=== PATIENT | male | born 1965 | race Hispanic/Latino ===

== ENCOUNTER → 2020-03-28 | Outpatient (CLI) | payer BC ==
[2020-03-28 10:42] LABS: INR 0.99 (0.85-1.15); PARTIAL THROMBOPLASTIN TIME 24.7 SEC (26.3-35.5); PROTHROMBIN TIME 10.7 SEC (9.6-11.6)
== END | disposition home or self-care (01) ==
LOC: EDSTATUS 03-23 08:00 → DAH 09:16
PROVIDERS: ATTEND Internal Medicine
DX: E04.1 Nontoxic single thyroid nodule (principal); E11.42 Type 2 diabetes mellitus with diabetic polyneuropathy; E11.65 Type 2 diabetes mellitus with hyperglycemia; I10 Essential (primary) hypertension; E78.5 Hyperlipidemia, unspecified; G47.33 Obstructive sleep apnea (adult) (pediatric); E66.9 Obesity, unspecified; Z79.4 Long term (current) use of insulin; Z79.899 Other long term (current) drug therapy
CPT/HCPCS: 10005; 36415; 60100; 76942; 85610; 85730

== ENCOUNTER → 2022-06-25 | Outpatient (CLI) | payer OTHER ==
[~2022-06-25] MED LIST: AEC81 PO; EMPA25TA PO; HYDR25TA PO; INSU3INS5 SQ; LISI30TA4 PO; METF-446 PO; VIT1CAPS47 PO
== END | disposition home or self-care (01) ==
LOC: LAB 08:38
PROVIDERS: ATTEND Internal Medicine Cardiovascular Disease
DX: E11.59 Type 2 diabetes mellitus with other circulatory complications (principal); E78.00 Pure hypercholesterolemia, unspecified; Z78.9 Other specified health status
CPT/HCPCS: 82306

== ENCOUNTER → 2022-09-23 | Outpatient (CLI) | payer OTHER | END | disposition home or self-care (01) | LOC: RAH 14:37 | PROVIDERS: ATTEND Internal Medicine | DX: E04.1 Nontoxic single thyroid nodule (principal) | CPT/HCPCS: 76536 ==

== ENCOUNTER → 2022-10-02 | Outpatient (CLI) | payer OTHER ==
[~2022-10-02] MED LIST changes: +LIDOCAINE HCL 1% 20 ML VIAL ONE
[2022-10-02 10:04] LABS: INR 1.01 (0.85-1.15)
[2022-10-02 10:05] LABS: PARTIAL THROMBOPLASTIN TIME 26.8 SEC (26.3-35.5)
== END | disposition home or self-care (01) ==
LOC: RAH 08:33
PROVIDERS: ATTEND Internal Medicine
DX: E04.1 Nontoxic single thyroid nodule (principal); Z79.01 Long term (current) use of anticoagulants
CPT/HCPCS: 10005; 36415; 76942; 85610; 85730; 88173; 88305

== ENCOUNTER → 2024-03-22 | Outpatient (CLI) | payer OTHER ==
[~2024-03-22] MED LIST changes: -LIDOCAINE HCL 1% 20 ML VIAL ONE
[2024-03-22 12:32] LABS: CREATININE 1.3 mg/dL (0.5-1.3); POTASSIUM 4.9 mmol/L (3.5-5.1)
== END | disposition home or self-care (01) ==
LOC: LAB 08:26
PROVIDERS: ATTEND Internal Medicine Cardiovascular Disease
DX: I10 Essential (primary) hypertension (principal); E78.2 Mixed hyperlipidemia; I95.2 Hypotension due to drugs
CPT/HCPCS: 36415; 80048

== ENCOUNTER 2024-09-03 09:50 | Observation (INO) | payer OTHER ==
[2024-09-01 13:08] VITALS: BP 148/67; PULSE 68; RESP 18; TEMP 98.1
[2024-09-01 13:10] LABS: BASOPHILS # (AUTO) 0.12 K/uL (0.00-0.20); BASOPHILS % (AUTO) 1.2 % (0.0-5.0); EOSINOPHILS # (AUTO) 0.27 K/uL (0.00-0.70); EOSINOPHILS % (AUTO) 2.7 % (0.0-8.0); HEMATOCRIT 50.1 % (42-54); IMMATURE GRANULOCYTE ABSOLUTE 0.04 K/uL (0-1); LYMPHOCYTES % (AUTO) 30.2 % (21.0-51.0); MEAN CORPUSCULAR HEMOGLOBIN 29.1 pg (27.0-33.0); MEAN CORPUSCULAR HGB CONC 35.5 g/dL (32.0-36.0); MONOCYTES % (AUTO) 9.9 % (3.0-13.0); NEUTROPHILS # (AUTO) 5.5 K/uL (1.8-7.7); NEUTROPHILS % (AUTO) 55.6 % (40.0-77.0); PLATELET COUNT (AUTO) 215 K/uL (130-400); RED BLOOD CELL COUNT(AUTO) 6.11 MIL/uL (4.50-6.20); RED CELL DISTRIBUTION WIDTH 14.4 % (11.0-15.5); WHITE BLOOD COUNT (AUTO) 9.9 K/uL (4.8-10.8)
[2024-09-01 13:18] LABS: CREATININE 1.3 mg/dL (0.5-1.3); MAGNESIUM 2.2 mg/dL (1.80-2.40); POTASSIUM 4.5 mmol/L (3.5-5.1)
[2024-09-01 13:21] LABS: INR 1.03 (0.85-1.15); PROTHROMBIN TIME 10.9 SEC (9.6-11.6)
[2024-09-01 13:23] LABS: PARTIAL THROMBOPLASTIN TIME 25.7 SEC (26.3-35.5)
[2024-09-01 13:29] LABS: APPEARANCE,URINE CLEAR (CLEAR); BILIRUBIN,URINE NEGATIVE (NEGATIVE); COLOR,URINE LIGHT-YELLOW (YELLOW); GLUCOSE, URINE (UA) >=1000 mg/dL (NEGATIVE); KETONES,URINE NEGATIVE (NEGATIVE); LEUKOCYTE ESTERASE ,URINE NEGATIVE Leu/uL (NEGATIVE); NITRATE,URINE NEGATIVE (NEGATIVE); OCCULT BLOOD,URINE NEGATIVE (NEGATIVE); PH,URINE 5.5 (5.0-8.0); PROTEIN,URINE NEGATIVE (NEGATIVE); UROBILINOGEN,URINE 0.2 mg/dL (0.2-1.0)
--- NOTE | 2024-09-01 13:34 | HMCIMG ---
Exam Type: CHEST 1VW Clinical Information: PRE OP Comparison: None Findings: The lungs are clear of infiltrates. The heart is normal in size. The bony and soft tissue structures of the chest are unremarkable. Impression: Clear lungs.
--- NOTE | 2024-09-01 13:39 | EKG ---
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
[2024-09-01 13:42] LABS: ADD UA MICROSCOPIC YES
[2024-09-01 13:47] LABS: B-TYPE NATRIURETIC PEPTIDE 7 pg/mL (0-100)
[2024-09-01 14:07] LABS: RBC,URINE 0-1 /HPF (0-1)
[~2024-09-03] VITALS: Ht 177.8 cm; Wt 104.3 kg
[2024-09-03] VITALS (12 sets, daily range): BP systolic 82–135; BP diastolic 41–74; PULSE 57–72; RESP 14–22; TEMP 97.6–98.4; O2SAT 97
[~2024-09-03 09:50] MED LIST changes: +ATOR-2 PO; +CHOL500051 PO; +EZET10TA48 PO; -METF-446 PO; +MVI PO; +TIRZ10PE SQ
[2024-09-03] MEDS ORDERED: LIDOCAINE HCL 400MG/20ML VIAL ONE (15:46)
[2024-09-03] MEDS ORDERED: HEParin-NS 1,000 UNIT/500 ML 1,000 ML IV ONE (15:46)
[2024-09-03] MEDS ORDERED: IODIXANOL 320 MG/ML 100 ML VIAL ONE (15:46)
[2024-09-03] MEDS ORDERED: SODIUM BICARB 50MEQ 50ML VIAL 50 ML ONE (15:46)
[2024-09-03] MEDS ORDERED: HEParin 10,000 UNIT/10ML (1,000 UNIT/ML) VIAL ONE (15:46)
[2024-09-03] MEDS ORDERED: FENTanyl CITRate PF 50 MCG/1 ML 2ML VIAL ONE (16:22)
[2024-09-03] MEDS ORDERED: MIDAZOLAM HCL 1 MG/ML 2ML VIAL ONE (16:22)
[2024-09-03] MEDS ORDERED: cloPIDOgrel 300MG TAB ONE (17:30)
[2024-09-03] MEDS ORDERED: ASPIRIN 325MG EC TAB PO ONE (17:30)
--- NOTE | 2024-09-03 18:04 | PRN ---
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 Under local anesthesia with 1% lidocaine using ultrasound guidance and micropuncture technique the right jugular vein was accessed by a posterior approach and a nine Slovak sheath was inserted. Over a Glidewire we advanced a angled glide catheter to the left superficial femoral vein and performed left iliofemoral venography, then exchanged for an intravascular ultrasound catheter and performed left iliofemoral intravascular ultrasound. I personally performed the ultrasound procedure, selected images for interpretation, performed the measurements and interpreted the results. We then administered 5000 units aqueous heparin and 600 mg clopidogrel and 325 mg aspirin and advanced a 20 x 80 mm Medtronic Abre venous self expanding stent system to the disease segment of the left common iliac and deployed it. We then exchanged for a Medtronic Abre 18 x 120 mm venous self expanding stent system which we deployed in the left external iliac throughout the entire length of the external iliac. We then validated results by intravascular ultrasound. We then repositioned the Glidewire and Archbold catheter in the right superficial femoral and removed the wire and performed right iliofemoral venography. We then readvanced the Glidewire and performed right iliofemoral intravascular ultrasound. Again, I personally performed the procedure, selected the images for interpretation, performed the measurements and interpreted the results. We exchanged for a 14 x 60 mm balloon with which we pre-dilated the entire length of the external iliac, then we exchanged for a Medtronic Abre venous self expand ing stent system 16 x 150 mm in size. We deployed this along the entire length of the right external iliac and diseased segment of the common iliac. Results were validated by intravascular ultrasound and we removed the equipment, sat the patient upright and removed the arterial sheath and obtained hemostasis by direct manual pressure. No complications occurred and the patient was transferred from the lab in stable condition. RESULTS: Left iliofemoral venography demonstrated about 50% stenosis of the left external iliac vein. Right iliofemoral venography demonstrated diffuse 50% narrowing of the external iliac and distal common iliac veins. Intravascular ultrasound results were as follows: Inferior vena cava area 271 mm, diameter 19.5 mm. Left side intravascular ultrasound measurements: Left common iliac reference area 333 mm, diameter 21.2 mm. Left common iliac compression area 108 mm, diameter 13.1 mm, 67.5% stenosis. Left common iliac vein poststenotic area 307 mm, diameter 19.5 mm, 8% residual. Left external iliac reference area 238 mm, diameter 17.5 mm. Left external iliac compression area 76 mm, diameter 10.5 mm, 68% stenosis. (Because the entire external iliac appeared to be compressed, we used the common femoral area as the reference.) Left external iliac vein post stent area 199 mm, diameter 15.5 mm, 16% residual. Left common femoral vein reference area 236 mm, diameter 17.5 mm. Right side intravascular ultrasound measurements: Right common iliac reference area 219 mm, diameter 16.2 mm. Right common iliac vein compression area 69 mm, diameter 10.8 mm, 69% stenosis. Post stent right common iliac vein area 231 mm, diameter 17 mm, 0% residual. Right external iliac vein reference area 146 mm, diameter 14 mm. Right external iliac vein compression area 39 mm, diameter 8.2 mm, 73% stenosis. Right external iliac vein post stent area 162 mm, diameter 14.4 mm, 0% residual. Right common femoral vein reference area 182 mm, diameter 15.2 mm. Conclusions: Bilateral May-Thurner syndrome is confirmed with narrowings of 68-73% in common iliac and external iliac veins bilaterally. Successful treatment of May-Thurner syndrome with successful bilateral iliac vein stenting CRISTIAN DIMAS MD September 03, 2024 18:04
--- NOTE | 2024-09-03 20:35 | NUR ---
WENT INTO PATIENTS ROOM TO START DISCHARGING HIM HOME AND NOTICED PT DIAPHORETIC. PT DID STATE WHEN HE CAME BACK FROM THE RESTROOM HE HAD A SHARP PAIN TO LOW ABD. BS 170 NOTED BLOOD PRESSURE IN THE 80'S SYSTOLIC, SALARY MANAGER CALLED QUICK REPORT WAS GIVEN TO RN AND DR. DIMAS WHOM STATED HE WILL COME AND ASSESS THE PT.
--- NOTE | 2024-09-03 20:45 | NUR ---
DR. DIMAS AT BEDSIDE TO ASSESS THE PATIENT. 200ML BOLUS GIVEN TO PT BLOOD PRESSURE DID IMPROVE. DR. DIMAS TOLD PT AND HE WILL BE STAYING FOR OBS STAT CT ORDERED. REPORT GIVEN TO RN ON 2ND FLOOR CT ABD PELVIS WILL BE DONE PRIOR TO SENDING PT TO 2ND FLOOR.
--- NOTE | 2024-09-03 21:06 | NUR ---
RN FROM [facility] PT GIVING REPORT. STAFF WAS INFORMED THAT PT HAS STAT CT EXAM PENDING
--- NOTE | 2024-09-03 21:20 | NUR ---
RECEIVED PT FROM DAY SURGERY VIA BED, AWAKE AND ORIENTED. PT DENIES DISCOMFORT, NO SOB OR LABORED RESPIRATIONS, RIGHT EXTERNAL JUGULAR ACCESS SITE FOR CATH CLEAN, DRY, AND INTACT. NO HEMATOMA, NO DRAINAGE, NO REDNESS. ORIENTED TO ROOM AND CALL LIGHT. PT MADE AWARE TO CALL STAFF IF NEEDING ASSISTANCE. TELEMETRY MONITORING, CALL LIGHT WITHIN REACH. SPOUSE AT BEDSIDE
--- NOTE | 2024-09-03 21:33 | HMCIMG ---
CT ABDOMEN WITHOUT CONTRAST. CT PELVIS WITHOUT CONTRAST. INDICATION: Lower abdominal pain. Hypotensive. TECHNIQUE: Routine transaxial imaging using 5 mm slice thickness through the abdomen and pelvis without the administration of IV contrast. Thin slice reconstructions are also provided. Coronal and sagittal reformatted images acquired for interpretation. CT was performed with one or more of the following dose reduction techniques: Automated exposure control, adjustment of the mA and/or kV according to patient size, or use of iterative reconstruction technique. COMPARISON: None FINDINGS: ON NONCONTRAST IMAGING: ABDOMEN: Heart size is normal. Visible lung bases are clear. No abnormal right renal calcifications, hydronephrosis, perinephric inflammation, or proximal hydroureter detected. 6 cm simple left renal cyst and much smaller 2.2 cm simple right renal cyst. Additional subcentimeter simple cyst at the mid to lower portion and lower portion of the right kidney. 2 mm calcification at the midportion of the left kidney. The liver is normal in size and smooth in contour without biliary duct dilation. Diffuse low attenuation of the liver parenchyma suggests fatty change. The spleen is normal in size and attenuation. The gallbladder appears normal. The pancreas appears normal without pancreatic duct dilation. The adrenal glands appear normal. No significant abdominal, retrocrural or retroperitoneal adenopathy noted. No evidence for intra-abdominal free air or organized fluid collection. Mild calcific plaque is noted along the abdominal aortic and iliac vessel bonilla without aneurysmal dilation. Bilateral iliac vein stents noted. PELVIS: No abnormal calcifications within the urinary bladder or distal ureters. No evidence for free air or organized pelvic fluid collection. No significant pelvic adenopathy detected. Several diverticula along the distal colon. Moderate distal colonic stool burden. The appendix appears normal. Visible osseous structures are intact. IMPRESSION: 2 mm nonobstructing left renal calculus. Hepatic steatosis. Distal colonic diverticulosis. Additional minor findings, postsurgical changes, and pertinent negatives as reported.
--- NOTE | 2024-09-03 22:05 | HP ---
History of Present Illness Reason for Visit: abdominal pain History of Present Illness Mr. Ji is a 58-year-old male that was seen and examined today on 09/03/2024. Patient is a good historian of personal health. patient's is at bedside. Patient states that he came to the hospital to have an outpatient procedure. Patient is status post bilateral iliac stents due to peripheral artery disease. In the recovery period about 2044 patient developed abdominal pain. Location is to bilateral upper quadrants. Character is described as, like gas. There was no alleviating factors. Symptoms are aggravated with defecation. Patient denies any associated chest pain or shortness and breath. Postprocedure CT of abdomen and pelvis showed2 mm nonobstructing left renal calculus, hepatic steatosis, distal colonic diverticulosis as well as additional minor findings, postsurgical changes. Patient will be continued to be followed by cardiology service, Dr. Soliman who requested hospitalist service for admission Past Medical History Patient History: Carcinomas MOTHER, , Age: 40, Cause: Leukemia Hypertension MOTHER, , Age: 40, Cause: Leukemia FATHER, , Age: 82, Cause: Old age ADDITIONAL PAST MEDICAL HISTORY: [Diabetes mellitius type2, hypertension, hyperlipidemia, PAD, DESTINEY] SOCIAL HISTORY: [Negative for smoking. Patient drinks 1-2 beers about once a month that are12 oz each. Patient denies drug use.] SURGICAL HISTORY: [Hernia repair, colonoscopy, bilateral iliac stents] Review of Systems General: No Fever, No Chills, No Night Sweats, No Fatigue, No Malaise, No Appetite, No Other HEENT: No Head Aches, No Visual Changes, No Eye Pain, No Ear Pain, No Dysphasia, No Sinus Congestion, No Post Nasal Drip, No Sore Throat, No Other Pulmonary: No Dyspnea, No Cough, No Pleuritic Chest Pain, No Other Cardiovascular: No: Chest Pain, Palpitations, Orthopnea, Paroxysmal Noc. Dyspnea, Edema, Lt Headedness, Other Gastrointestinal: Abdominal Pain; No: Nausea, Vomiting, Diarrhea, Constipation, Melena, Hematochezia, Other Genitourinary: No Dysuria, No Frequency, No Incontinence, No Hematuria, No Retention, No Other Musculoskeletal: No: other, neck pain, shoulder pain, arm pain, back pain, hand pain, leg pain, foot pain Skin: No Urticaria, No Rash, No Other Neurological: No: Weakness, Numbness, Incoordination, Change in speech, Confusion, Seizures, Other Allergies: Coded Allergies: No Known Drug Allergies (Unverified Allergy, Unknown, 05/14/22) Scheduled Aspirin (Aspirin 81 Mg Ectab), 81 MG PO DAILY, (Reported) Atorvastatin Calcium (Atorvastatin Calcium), 80 MG PO HS, (Reported) Cholecalciferol (Vitamin D3) (Vitamin D3), 125 MCG PO AM, (Reported) Empagliflozin (Jardiance), 25 MG PO DAILY, (Reported) Ezetimibe (Ezetimibe), 10 MG PO AM, (Reported) Hydrochlorothiazide (Hydrochlorothiazide), 25 MG PO DAILY, (Reported) Insuln Asp Prt/Insulin Aspart (Novolog Mix 70-30 Flexpen Syrn), 80 UNITS SQ BID, (Reported) Lisinopril (Lisinopril), 30 MG PO DAILY, (Reported) Tirzepatide (Mounjaro), 10 MG SQ WEEKLY, (Reported) Vit C/E/Zn/Coppr/Lutein/Zeaxan (Preservision Areds 2 Softgel), 1 EACH PO DAILY, (Reported) [Mvi], 1 TAB PO DAILY, (Reported) Discontinued Medications Metformin HCl (Metformin HCl), 1,000 MG PO BID, (Reported) Exam Vital Signs Vital Signs Date Time Temp Pulse Resp B/P (MAP) Pulse Ox O2 Delivery O2 Flow Rate FiO2 09/03/24 21:39 98.1 67 22 129/72 96 Room Air 09/03/24 20:50 21 General Appearance: Alert, Oriented X3, Cooperative, No acute distress HEENT: Atraumatic, PERRLA, EOMI, Mucous membr. moist/pink Respiratory: Clear to auscultation, Normal air movement, NL respiratory effort Cardiovascular: Regular rate, Regular rhythm, Normal S1, Normal S2 Abdominal: Normal bowel sounds, Soft, No tenderness Extremities: No edema Skin: Other (Positive jugular surgical incision) Neuro: Normal speech, Strength at 5/5 X4 ext, Sensation intact, Cranial nerves 3-12 NL Psych/Mental Status: Mental status NL, Mood NL, Thoughts/Content NL Assessment/Plan ASSESSMENT: [ Peripheral artery disease, POA Status post bilateral iliac stents, on 09/03/2024 Abdominal pain Diabetes mellitius type2 Hypertension Hyperlipidemia CAD DESTINEY] PLAN: [ Admit patient to pccu as inpatient status. Place patient on telemetry monitoring. Patient is being followed by cardiology service, Dr. Soliman Anticoagulation and antiplatelet therapy per Cardiology Service. Postprocedure care per cardiology service. Reviewed CT of abdomen and pelvis. Check hemoglobin A1c in a.m. Glucometer checks a.c. and HS 1800 ADA diet Humulin R sliding scale Continue aspirin, Plavix, multivitamin, lisinopril, insulin, atorvastatin, hydrochlorothiazide, Zetia, empagliflozin. CPAP per home settings as needed GI prophylaxis, famotidine DVT prophylaxis, Jose's and SCDs ADVANCED CARE PLANNING 1. Which of the following were discussed? Hospice Care - Yes Therapeutic options - Yes Advance Directives - Yes -patient wishes to remain a full code at this time Other discussions - patient states he does not have any advance directives in place at this time, however his can make decisions for him if he becomes unable. 2. Discussed with who? Patient 3. Voluntary nature of this service was explained to the patient? Yes 4. Amount of time spent - __ 16 minutes 5. Reviewed by Physician? (if this service was performed by NPP) Yes This document was generated in part using voice recognition software, occasional wrong word or sound alike substitutions may have occurred due to the inherent limitations of voice recognition software. Read the chart carefully and recognize using context, where the substitutions have occurred. Although every effort was made to edit the content, underwear trimmer and typing errors may occur ATTESTATION BY PHYSICIAN I have seen and examined the patient. I reviewed the documentation, medical decision making, and treatment plan as noted by the mid-level provider above. I agree with the findings and plan of care. KATHIE NAGY [facility] September 03, 2024 22:05
[2024-09-03] MEDS ORDERED: hydrALAZine 20MG/ML VIAL IV PRN (22:30)
[2024-09-03] MEDS ORDERED: ondanSETRON 4MG INJ IV PRN (22:30)
[2024-09-03] MEDS ORDERED: morPHINE 2 MG SYG IVP PRN (22:30)
[2024-09-03] MEDS ORDERED: acetaMINOPHEN 325 MG TAB PO PRN (22:30)
[2024-09-03] MEDS: LACTATED RINGERS 1000ML 1,000 ML IV SCH (23:05)
[2024-09-04 00:02] VITALS: BP 140/67; PULSE 69; RESP 20; TEMP 98.1
[2024-09-04] MEDS: acetaMINOPHEN 325 MG TAB PO PRN (02:06)
[2024-09-04 03:59] LABS: BASOPHILS # (AUTO) 0.09 K/uL (0.00-0.20); EOSINOPHILS # (AUTO) 0.11 K/uL (0.00-0.70); EOSINOPHILS % (AUTO) 1.3 % (0.0-8.0); HEMATOCRIT 48.4 % (42-54); IMMATURE GRANULOCYTE ABSOLUTE 0.02 K/uL (0-1); LYMPHOCYTES # (AUTO) 2.5 K/uL (1.0-4.8); LYMPHOCYTES % (AUTO) 28.5 % (21.0-51.0); MEAN CORPUSCULAR HGB CONC 34.5 g/dL (32.0-36.0); MEAN CORPUSCULAR VOLUME 84.2 fL (79-99); MONOCYTES # (AUTO) 0.9 K/uL (0.1-1.0); MONOCYTES % (AUTO) 10.6 % (3.0-13.0); NEUTROPHILS % (AUTO) 58.4 % (40.0-77.0); PLATELET COUNT (AUTO) 170 K/uL (130-400); RED BLOOD CELL COUNT(AUTO) 5.75 MIL/uL (4.50-6.20); RED CELL DISTRIBUTION WIDTH 14.6 % (11.0-15.5); WHITE BLOOD COUNT (AUTO) 8.6 K/uL (4.8-10.8)
[2024-09-04 04:00] VITALS: BP 124/59; PULSE 57; RESP 20; TEMP 98
[2024-09-04 04:15] LABS: INR 1.06 (0.85-1.15); PROTHROMBIN TIME 11.2 SEC (9.6-11.6)
[2024-09-04 04:16] LABS: HEMOGLOBIN A1C 6.8 % (4.0-6.0); PARTIAL THROMBOPLASTIN TIME 23.1 SEC (26.3-35.5)
[2024-09-04 04:24] LABS: CREATININE 1.3 mg/dL (0.5-1.3); MAGNESIUM 2.2 mg/dL (1.80-2.40); PHOSPHORUS 4.4 mg/dL (2.5-4.9); POTASSIUM 4.4 mmol/L (3.5-5.1)
--- NOTE | 2024-09-04 06:00 | NUR ---
PT AWAKE, ALERT, AND ORIENTED. AMBULATED IN HALLWAY WITH SUPERVISION, GAIT STEADY, DENIES CHEST PAIN, NO SOB OR LABORED RESPIRATIONS. CATH ACCESS SITE TO RIGHT EXTERNAL JUGULAR INTACT, NO HEMATOMA, NO DRAINAGE. TELEMETRY MONITORING, CALL LIGHT WITHIN REACH.
[2024-09-04] MEDS: INSULIN humuLIN R 100 UNIT/ML 3ML SQ SCH (06:34)
[2024-09-04 07:00] VITALS: BP 116/65; PULSE 61; RESP 20; TEMP 97.9
[2024-09-04] MEDS: ASPIRIN 81MG CHEW TAB PO SCH (07:44)
[2024-09-04] MEDS: VITAMIN D3 PO SCH (09:00)
[2024-09-04] MEDS: hydroCHLOROthiazide 25 MG TABLET PO SCH (09:00)
[2024-09-04] MEDS: [UNRECOGNIZED DRUG - OTHER] PO SCH (09:00)
[2024-09-04] MEDS: TIRZEPATIDE 10 MG SQ SCH (09:00)
[2024-09-04] MEDS ORDERED: ASPIRIN 81 MG EC TAB PO SCH (09:00)
[2024-09-04] MEDS: LISINOPRIL 20 MG TABLET PO SCH (09:00)
[2024-09-04 09:30] VITALS: O2SAT 97
[2024-09-04] MEDS: cloPIDOgrel 75MG TAB PO SCH (09:39)
[2024-09-04] MEDS: FAMOTIDINE 20MG TAB PO SCH (09:41)
[2024-09-04] MEDS: EMPAGLIFLOZIN 25MG TABLET PO SCH (09:41)
[2024-09-04] MEDS: MULTIVITAMIN TABLET PO SCH (09:41)
[2024-09-04] MEDS: EZETIMIBE 10 MG TAB PO SCH (09:41)
[2024-09-04 10:30] VITALS: BP 124/67; PULSE 73; RESP 20; TEMP 98.1
--- NOTE | 2024-09-04 13:10 | NUR ---
DISCHARGE Discharge instructions given to patient and patient's spouse. Both verbalized knowledge and understanding. Patient had already received paper prescription script yesterday at day patient. Patient confirmed. Patient's belongings verified to be back with patient. Patient escorted via wheelchair by ENVIRONMENTAL TECHNICIAN. Patient discharged now at 1310.
--- NOTE | 2024-09-04 14:28 | PN ---
[facility] CARDIOLOGY PROGRESS NOTE Date Patient Seen: September 04, 2024 Time of Visit: 14:25 Interval History: [No acute events overnight. The patient is status post bladder iliac stent placed in yesterday. CT abdomen was negative for bleeding. Hemoglobin stable. ] Physical Examination: GENERAL: [No acute distress.] HEAD: [Normal with no signs of head trauma.] EYES: [PERRLA, EOMI, conjunctiva and sclera normal.] ENT: [Hearing grossly intact, normal oropharynx.] NECK: [Supple without JVD. There is no tenderness, lymphadenopathy, or masses. No thyromegaly. Normal carotid upstrokes without bruits.] LUNGS: [Clear breath sounds bilaterally. No wheezes, or rhonchi.] HEART: [Normal rate and rhythm. Normal S1 and S2 without mumurs, gallop or rub.] VASC: [Peripheral pulses +2 bilaterally.] ABD: [Bowel sounds normal, soft, nontender, no masses, no organomegaly. No audible bruits.] : [Not examined] LYMPH: [No lymphadenopathy noted.] EXT: [No clubbing, cyanosis or edema.] SKIN: [No rashes or lesions noted.] NEURO: [Awake, alert, and oriented x3. No focal sensory or strength deficits noted.] Laboratory: [ ] Hematology Labs: Test 09/04/24 03:29 Range/Units White Blood Count 8.6 4.8-10.8 K/uL Red Blood Count 5.75 4.50-6.20 MIL/uL Hemoglobin 16.7 14.0-18.0 g/dL Hematocrit 48.4 42-54 % Mean Corpuscular Volume 84.2 79-99 fL Mean Corpuscular Hemoglobin 29.0 27.0-33.0 pg Mean Corpuscular Hemoglobin Concent 34.5 32.0-36.0 g/dL Red Cell Distribution Width 14.6 11.0-15.5 % Platelet Count 170 130-400 K/uL Mean Platelet Volume 10.2 7.5-10.5 fL Immature Granulocyte % (Auto) 0.2 0-1 % Neutrophils (%) (Auto) 58.4 40.0-77.0 % Lymphocytes (%) (Auto) 28.5 21.0-51.0 % Monocytes (%) (Auto) 10.6 3.0-13.0 % Eosinophils (%) (Auto) 1.3 0.0-8.0 % Basophils (%) (Auto) 1.0 0.0-5.0 % Neutrophils # (Auto) 5.0 1.8-7.7 K/uL Lymphocytes # (Auto) 2.5 1.0-4.8 K/uL Monocytes # (Auto) 0.9 0.1-1.0 K/uL Eosinophils # (Auto) 0.11 0.00-0.70 K/uL Basophils # (Auto) 0.09 0.00-0.20 K/uL Absolute Immature Granulocyte (auto 0.02 0-1 K/uL Nucleated Red Blood Cells 0.0 0.0-0.19 % Chemistry Labs: Test 09/04/24 11:33 09/04/24 03:29 Range/Units Whole Blood Glucose 254 #H 70-110 MG/DL Sodium Level 141 136-145 mmol/L Potassium Level 4.4 3.5-5.1 mmol/L Chloride Level 104 101-111 mmol/L Carbon Dioxide Level 29 21-32 mmol/L Blood Urea Nitrogen 28 H 7-18 mg/dL Creatinine 1.3 0.5-1.3 mg/dL Glomerular Filtration Rate Calc 63 >90 mL/min Random Glucose 100 70-105 mg/dL Hemoglobin A1c 6.8 H 4.0-6.0 % Estimated Average Glucose (eAG) 148 H 70-126 mg/dL Total Calcium 9.1 8.5-10.1 mg/dL Phosphorus Level 4.4 2.5-4.9 mg/dL Magnesium Level 2.20 1.80-2.40 mg/dL Coagulation Labs: Test 09/04/24 03:29 Range/Units Prothrombin Time 11.2 9.6-11.6 SEC Prothromb Time International Ratio 1.06 0.85-1.15 Activated Partial Thromboplast Time 23.1 L 26.3-35.5 SEC Diagnostics / Radiology: [Copy/Paste Echos/Imaging Report here] Impression and Plan: Peripheral artery disease, POA Status post bilateral iliac stents, on 09/03/2024 Abdominal pain Diabetes mellitius type2 Hypertension Hyperlipidemia CAD DESTINEY][ ] Patient states that he came to the hospital to have an outpatient procedure. Patient is status post bilateral iliac stents due to peripheral artery disease. In the recovery period about 2044 patient developed abdominal pain. The patient underwent abdominal CTA that was negative for any bleeding. Hemoglobin is stable We will continue [id number] mg daily, [id number] mg daily, atorvastatin 40 mg daily No need for further testing at this time Thank you for this consult cardiology will sign off at this time the patient will follow up with clinic 1-2 weeks after discharge with Dr. Janny sloan MD ATTESTATION BY PHYSICIAN I have seen and examined the patient, reviewed the above documentation, p articipated in medical decision making, made necessary modifications, and agree with the treatment plan as documented by my mid-level provider above. MD LORIN Morales JAMES R MD September 04, 2024 14:28
--- NOTE | 2024-09-04 14:28 | DS ---
Discharge Summary Hospital Course Summary: 58-year-old male that was seen and examined today on 09/03/2024. Patient is a good historian of personal health. patient's is at bedside. Patient states that he came to the hospital to have an outpatient procedure. Patient is status post bilateral iliac stents due to peripheral artery disease. In the recovery period about 2044 patient developed abdominal pain. Location is to bilateral upper quadrants. Character is described as, like gas. There was no alleviating factors. Symptoms are aggravated with defecation. Patient denies any associated chest pain or shortness and breath. Postprocedure CT of abdomen and pelvis showed2 mm nonobstructing left renal calculus, hepatic steatosis, distal colonic diverticulosis as well as additional minor findings, postsurgical changes. Patient will be continued to be followed by cardiology service, Dr. Soliman who requested hospitalist service for admission 09/04/2024. Patient was seen and examined along with RN. Patient was kept overnight observed for any worsening abdominal pain. Abdominal pain has been resolved found to have 2 mm nonobstructive renal calculus which patient will follow outpatient with PCP. Patient was seen by cardiology recommended the patient can be discharged home. Orthotic And Prosthetic Technician(s): Consultation with Cardiology Dr. Soliman was obtained patient was monitored overnight discharge on 09/04/2024. Procedure(s): none Laboratory Tests Test 09/03/24 09:57 09/03/24 20:37 09/04/24 03:29 09/04/24 05:41 Whole Blood Glucose 141 MG/DL (70-110) H 170 MG/DL (70-110) H 70 MG/DL (70-110) # White Blood Count 8.6 K/uL (4.8-10.8) Red Blood Count 5.75 MIL/uL (4.50-6.20) Hemoglobin 16.7 g/dL (14.0-18.0) Hematocrit 48.4 % (42-54) Mean Corpuscular Volume 84.2 fL (79-99) Mean Corpuscular Hemoglobin 29.0 pg (27.0-33.0) Mean Corpuscular Hemoglobin Concent 34.5 g/dL (32.0-36.0) Red Cell Distribution Width 14.6 % (11.0-15.5) Platelet Count 170 K/uL (130-400) Mean Platelet Volume 10.2 fL (7.5-10.5) Immature Granulocyte % (Auto) 0.2 % (0-1) Neutrophils (%) (Auto) 58.4 % (40.0-77.0) Lymphocytes (%) (Auto) 28.5 % (21.0-51.0) Monocytes (%) (Auto) 10.6 % (3.0-13.0) Eosinophils (%) (Auto) 1.3 % (0.0-8.0) Basophils (%) (Auto) 1.0 % (0.0-5.0) Neutrophils # (Auto) 5.0 K/uL (1.8-7.7) Lymphocytes # (Auto) 2.5 K/uL (1.0-4.8) Monocytes # (Auto) 0.9 K/uL (0.1-1.0) Eosinophils # (Auto) 0.11 K/uL (0.00-0.70) Basophils # (Auto) 0.09 K/uL (0.00-0.20) Absolute Immature Granulocyte (auto 0.02 K/uL (0-1) Nucleated Red Blood Cells 0.0 % (0.0-0.19) Prothrombin Time 11.2 SEC (9.6-11.6) Prothrombin Time INR 1.06 (0.85-1.15) Activated Partial Thromboplast Time 23.1 SEC (26.3-35.5) L Sodium Level 141 mmol/L (136-145) Potassium Level 4.4 mmol/L (3.5-5.1) Chloride Level 104 mmol/L (101-111) Carbon Dioxide Level 29 mmol/L (21-32) Blood Urea Nitrogen 28 mg/dL (7-18) H Creatinine 1.3 mg/dL (0.5-1.3) Glomerular Filtration Rate Calc 63 mL/min (>90) Random Glucose 100 mg/dL (70-105) Hemoglobin A1c 6.8 % (4.0-6.0) H Estimated Average Glucose (eAG) 148 mg/dL (70-126) H Total Calcium 9.1 mg/dL (8.5-10.1) Phosphorus Level 4.4 mg/dL (2.5-4.9) Magnesium Level 2.20 mg/dL (1.80-2.40) Test 09/04/24 11:33 Whole Blood Glucose 254 MG/DL (70-110) #H Vital Signs Date Time Temp Pulse Resp B/P (MAP) Pulse Ox O2 Delivery O2 Flow Rate FiO2 09/04/24 10:30 98.1 73 20 124/67 98 Room Air 09/04/24 09:30 0 21 Assessment/Plan: ASSESSMENT: Peripheral artery disease, POA Status post bilateral iliac stents, on 09/03/2024 Abdominal pain Diabetes mellitius type2 Hypertension Hyperlipidemia CAD DESTINEY nonobstructive renal calculi in the left kidney POA Discharge Instructions: Follow up with Cardiology and physical Home Medications: Reported Medications Tirzepatide (Mounjaro) 10 Mg/0.5 Ml Pen.injctr, 10 MG SQ WEEKLY 09/01/24 Ezetimibe (Ezetimibe) 10 Mg Tablet, 10 MG PO AM, TAB 09/01/24 Cholecalciferol (Vitamin D3) (Vitamin D3) 125 Mcg (5000 Unit) Capsule, 125 MCG PO AM, CAP 09/01/24 Atorvastatin Calcium (Atorvastatin Calcium) 80 Mg Tablet, 80 MG PO HS, TAB 09/01/24 [Mvi] No Conflict Check, 1 TAB PO DAILY 09/01/24 Vit C/E/Zn/Coppr/Lutein/Zeaxan (Preservision Areds 2 Softgel) 1 Each Capsule, 1 EACH PO DAILY, CAP 05/14/22 Hydrochlorothiazide (Hydrochlorothiazide) 25 Mg Tablet, 25 MG PO DAILY, TAB 05/14/22 Empagliflozin (Jardiance) 25 Mg Tablet, 25 MG PO DAILY, TAB 05/14/22 Aspirin (ASPIRIN 81 MG ECTAB) 81 Mg Ectab, 81 MG PO DAILY, TAB.EC 05/14/22 Lisinopril (Lisinopril) 30 Mg Tablet, 30 MG PO DAILY, TAB 05/14/22 Insuln Asp Prt/Insulin Aspart (Novolog Mix 70-30 Flexpen Syrn) 100 Unit/1 Ml Insuln.pen, 80 UNITS SQ BID, SYRINGE 05/14/22 Discontinued Reported Medications Metformin HCl (Metformin HCl) 1,000 Mg Tablet, 1000 MG PO BID, TAB 05/14/22 Time spent arranging discharge: 31-60 minutes STEVIE QUINN MD September 04, 2024 14:28
[2024-09-04] MEDS ORDERED: atorVAStatin 40 MG TABLET PO SCH (21:00)
== END 2024-09-04 13:10 | disposition home or self-care (01) ==
LOC: DAH 09:50 → DAHIP 09:51 → DAH 20:57 → 2AH 21:45
PROVIDERS: ADMIT Internal Medicine; ATTEND Internal Medicine
DX: I87.1 Compression of vein (principal); I87.2 Venous insufficiency (chronic) (peripheral); E11.51 Type 2 diabetes mellitus with diabetic peripheral angiopathy without gangrene; I73.9 Peripheral vascular disease, unspecified; I10 Essential (primary) hypertension; E78.5 Hyperlipidemia, unspecified; K57.30 Diverticulosis of large intestine without perforation or abscess without bleeding; I25.10 Atherosclerotic heart disease of native coronary artery without angina pectoris; G47.33 Obstructive sleep apnea (adult) (pediatric); K76.0 Fatty (change of) liver, not elsewhere classified; N20.0 Calculus of kidney; Z79.899 Other long term (current) drug therapy; Z79.4 Long term (current) use of insulin; Z79.84 Long term (current) use of oral hypoglycemic drugs; Z79.82 Long term (current) use of aspirin
CPT/HCPCS: 83735 ×2; 80048 ×2; 83880; 85025 ×2; 85610 ×2; 85730 ×2; 81001; 36415 ×2; 71045; 93005; 37238; 37239 ×2; 36012; 75822; 37252; 37253 ×5; 82948 ×4; 74176; 96372; 83036; 84100; C1876 ×3; C1887; C1894; C1725; C1753; C1769; G0378 ×16; J3010; J3490 ×2; J1644 ×2; J2250; Q9967; A4215; A4223 ×3; A4222; A4221; A4663; A4216; A4606; J1815; 99156; 99157

== ENCOUNTER → 2025-03-08 | Outpatient (CLI) | payer BC ==
[~2025-03-08] MED LIST changes: -EZET10TA48 PO; +EZET10TA80 PO
--- NOTE | 2025-03-09 02:52 | HMCIMG ---
EXAM: MR KNEE LEFT CLINICAL HISTORY: Sprain of the unspecified site of the left knee, subsequent encounter. TECHNIQUE: Multiplanar magnetic resonance images of the left knee obtained. CONTRAST: NONE COMPARISON: No priors are available. FINDINGS: MENISCI: Medial meniscus: Thickening with intrasubstance edema involving the posterior horn and root. There is a radial tear of the posterior horn with slight extrusion out of the joint compartment. Thickening with intrasubstance edema is present involving the medial meniscotibial and meniscofemoral ligaments. There is discontinuity of the medial meniscofemoral ligament, which may represent a tear. Lateral meniscus: Mucoid degeneration is present. There is a circumferential horizontal tear of the body and posterior horn. CRUCIATE LIGAMENTS: Anterior cruciate ligament: Thickening with intrasubstance edema involving the posteromedial and anterolateral bundles, suggestive of mucoid degeneration. Posterior cruciate ligament: Similar changes are also visualized, suggestive of mucoid degeneration. COLLATERAL LIGAMENTS: Medial collateral ligament: The superficial component is showing mucoid degeneration without tear. Lateral collateral ligamentous complex: Inclusive of the popliteal tendon, are intact. JOINT: There is mild knee joint synovial effusion. No synovial hypertrophy or intra-articular body. There is a suprapatellar plica visualized. CARTILAGE: Articular cartilage intact. BONE: There are small marginal osteophytes only medial, lateral tibial and femoral condyles. Marginal osteophytes are also visualized along the superior and inferior poles of patella. No fracture or abnormal bone marrow signal. MUSCLES: Unremarkable. OTHER SOFT TISSUES: Unremarkable. No popliteal cyst. IMPRESSION: 1. Radial tear of the posterior horn of the medial meniscus with slight extrusion; associated mucoid degeneration of the posterior horn and root. 2. Circumferential horizontal tear of the body and posterior horn of the lateral meniscus. 3. Mucoid degeneration of the anterior and posterior cruciate ligaments. 4. Mucoid degeneration of the superficial and deep components of the medial collateral ligament with full thickness tear of the femoral insertion of the medial menisco femoral ligament. 5. Mild knee joint effusion. /[place]
== END | disposition home or self-care (01) ==
LOC: RAH 14:19
PROVIDERS: ATTEND Internal Medicine
DX: S83.92XD Sprain of unspecified site of left knee, subsequent encounter (principal); S83.282D Other tear of lateral meniscus, current injury, left knee, subsequent encounter; S83.242D Other tear of medial meniscus, current injury, left knee, subsequent encounter; X58.XXXD Exposure to other specified factors, subsequent encounter; M25.462 Effusion, left knee
CPT/HCPCS: 73721